=== PATIENT | male | born 1980 | race Caucasian/White ===

== ENCOUNTER 2017-03-23 02:07 | Emergency (ER) | payer OTHER ==
[~2017-03-23] VITALS: Ht 165.1 cm; Wt 145.0 kg
[2017-03-23 03:31] VITALS: BP 170/90
== END 2017-03-23 04:20 | disposition left against medical advice (07) ==
LOC: ER 02:13
DX: R53.83 Other fatigue (principal); Z53.21 Procedure and treatment not carried out due to patient leaving prior to being seen by health care provider

== ENCOUNTER 2017-03-23 05:31 | Emergency (ER) | payer OTHER ==
[~2017-03-23] VITALS: Ht 172.7 cm; Wt 112.0 kg
[2017-03-23 05:53] VITALS: BP 152/99
== END 2017-03-23 12:39 | disposition left against medical advice (07) ==
LOC: ER 12:38
DX: M79.642 Pain in left hand (principal); Z53.21 Procedure and treatment not carried out due to patient leaving prior to being seen by health care provider

== ENCOUNTER 2017-09-24 08:03 | Inpatient (IN) | payer OTHER ==
[~2017-09-24] VITALS: Ht 175.3 cm; Wt 145.6 kg
[2017-09-24] MEDS ORDERED: SODIUM CHLORIDE 0.9% 1,000 ML IV ONE (08:41)
[2017-09-24] MEDS ORDERED: LORAZEPAM 2MG/ML CPJ IV ONE (08:45)
[2017-09-24 09:11] LABS: BASOPHILS % 0.5 % (0.0-2.0); EOSINOPHILS % 1.2 % (0.0-5.0); HEMATOCRIT. 45.2 % (42.0-52.0); HEMOGLOBIN. 15.8 g/dL (14.0-18.0); LYMPHOCYTES % 17.7 % (20.0-50.0); MEAN CORPUSCULAR HEMOGLOBIN 30.5 pg (28.0-32.0); MEAN CORPUSCULAR VOLUME 86.9 fL (80.0-94.0); MEAN PLATELET VOLUME 8.6 fl (7.4-10.4); NEUTROPHILS % 73.6 % (40.0-76.0); PLATELET 204 x1000/uL (130-400); RED CELL DISTRIBUTION WIDTH 13.5 % (11.6-14.6)
[2017-09-24] MEDS ORDERED: ONDANSETRON HCL 4MG/2ML VIAL IV ONE (09:15)
[2017-09-24] MEDS ORDERED: ACTIVATED CHARCOAL 50 G/240 ML TUBE NG ONE (09:15)
[2017-09-24 09:26] LABS: CARBON DIOXIDE 24 mEq/L (21-32); CHLORIDE 105 mEq/L (98-107); ETHANOL BLOOD < 10 mg/dL; TROPONIN I < 0.02 ng/mL (0.00-0.04)
[2017-09-24 10:48] LABS: CLARITY URINE CLEAR (CLEAR); COLOR URINE YELLOW (YELLOW); GLUCOSE URINE NEGATIVE (NEGATIVE); KETONES URINE NEGATIVE (NEGATIVE); LEUKOCYTE ESTERASE URINE NEGATIVE (NEGATIVE); NITRITE URINE NEGATIVE (NEGATIVE); OCCULT BLOOD URINE NEGATIVE (NEGATIVE); PH URINE 5.5 (4.5-8.0); PROTEIN URINE NEGATIVE (NEGATIVE); SPECIFIC GRAVITY URINE 1.019 (1.005-1.030)
[2017-09-24 11:24] LABS: *AMPHETAMINES SCREEN URINE PRESUMTIVE POSITIVE (NEGATIVE); *BARBITURATES SCREEN URINE NEGATIVE (NEGATIVE); *BENZODIAZEPINES SCREEN URINE PRESUMTIVE POSITIVE (NEGATIVE); *COCAINE SCREEN URINE NEGATIVE (NEGATIVE); CANNABINOID URINE SCREEN NEGATIVE (NEGATIVE); METHADONE URINE SCREEN NEGATIVE (NEGATIVE); OPIATES URINE SCREEN NEGATIVE (NEGATIVE); PHENCYCLIDINE URINE SCREEN NEGATIVE (NEGATIVE)
[2017-09-24] MEDS ORDERED: CLONIDINE 0.1MG TABLET PO PRN (13:45)
[2017-09-24] MEDS ORDERED: DOCUSATE SODIUM 100MG CAPSULE PO PRN (13:45)
[2017-09-24] MEDS ORDERED: DIPHENHYDRAMINE 50MG/ML VIAL IV PRN (13:45)
[2017-09-24] MEDS ORDERED: IPRATROPIUM/ALBUTEROL 0.5-3(2.5)MG/3ML NEB INH PRN (13:45)
[2017-09-24] MEDS ORDERED: ENOXAPARIN 40MG/0.4ML SYR SUBCUT SCH (13:45)
[2017-09-24] MEDS ORDERED: MAGNESIUM/ALUMINUM HYDROXIDE/SIMETHICONE 30ML UDC PO PRN (13:45)
[2017-09-24] MEDS ORDERED: HYDROCODONE/ACETAMINOPHEN 5/325MG TABLET PO PRN (13:45)
[2017-09-24] MEDS ORDERED: ONDANSETRON HCL 4MG/2ML VIAL IV PRN (13:45)
[2017-09-24] MEDS ORDERED: GUAIFENESIN 200MG/10ML SUGAR FREE UDC PO PRN (13:45)
[2017-09-24] MEDS ORDERED: ACETAMINOPHEN 325MG TABLET PO PRN (13:45)
[2017-09-24] MEDS: LORAZEPAM 2MG/ML CPJ IV PRN ×2 (14:18→19:18)
[2017-09-24] MEDS ORDERED: LORAZEPAM 2MG/ML CPJ ONE (14:23)
[2017-09-24 14:41] LABS: CARBON DIOXIDE 23 mEq/L (21-32); CHLORIDE 105 mEq/L (98-107); TROPONIN I < 0.02 ng/mL (0.00-0.04)
[2017-09-24] MEDS ORDERED: ACETYLCYSTEINE 200MG/ML 20% VIAL 30ML PO ONE (16:00)
[2017-09-24] MEDS ORDERED: [UNRECOGNIZED DRUG - REMARK] XX SCH (16:00)
[2017-09-24] MEDS ORDERED: NA PHOS,M-B/NA PHOS,DI-BA ENEMA 118ML PR PRN (17:00)
[2017-09-24] MEDS ORDERED: HYDROMORPHONE HCL/PF 2MG/ML CPJ IV PRN (17:00)
[2017-09-24] MEDS ORDERED: DEXT 5% IV NR ×2 (17:00→18:00)
[2017-09-24] MEDS ORDERED: WATER IV NR ×2 (17:00→18:00)
[2017-09-24] MEDS ORDERED: ACETYLCYSTEINE IV NR ×2 (17:00→18:00)
[2017-09-24] MEDS: DEXT 5%/0.45% NACL KCL 10MEQ/L 1,000 ML IV SCH (20:16)
[2017-09-24] MEDS ORDERED: DEXTROSE 5% IV SCH (22:00)
[2017-09-24] MEDS ORDERED: WATER IV SCH (22:00)
[2017-09-24] MEDS ORDERED: ACETYLCYSTEINE IV SCH (22:00)
[2017-09-25 00:46] LABS: TROPONIN I < 0.02 ng/mL (0.00-0.04)
[2017-09-25] MEDS: LORAZEPAM 2MG/ML CPJ IV PRN (02:57)
[2017-09-25 04:24] LABS: BASOPHILS % 0.4 % (0.0-2.0); EOSINOPHILS % 0.3 % (0.0-5.0); HEMATOCRIT. 45.2 % (42.0-52.0); HEMOGLOBIN. 15.7 g/dL (14.0-18.0); LYMPHOCYTES % 9.2 % (20.0-50.0); MEAN CORPUSCULAR HEMOGLOBIN 30.3 pg (28.0-32.0); MEAN CORPUSCULAR VOLUME 87.1 fL (80.0-94.0); MEAN PLATELET VOLUME 8.4 fl (7.4-10.4); MONOCYTES % 4.9 % (2.0-8.0); NEUTROPHILS % 85.2 % (40.0-76.0); PLATELET 203 x1000/uL (130-400); RED BLOOD CELL COUNT 5.19 mill/uL (4.7-6.1); RED CELL DISTRIBUTION WIDTH 13.7 % (11.6-14.6)
[2017-09-25 04:34] LABS: CHLORIDE 105 mEq/L (98-107)
[2017-09-25 04:43] LABS: CARBON DIOXIDE 24 mEq/L (21-32); HDL CHOLESTEROL 46 mg/dL (40-59); LDL CHOLESTEROL 113 mg/dL (5-100)
[2017-09-25] MEDS: DEXT 5%/0.45% NACL KCL 10MEQ/L 1,000 ML IV SCH (05:45)
[2017-09-25 08:00] VITALS: BP 128/81
[2017-09-25] MEDS ORDERED: ENOXAPARIN 30MG/0.3ML SYR SUBCUT SCH (09:00)
[2017-09-25] MEDS ORDERED: LEVOFLOXACIN 500MG PREMIX 100 ML IV SCH (09:00)
[2017-09-25 12:28] VITALS: BP 131/70
== END 2017-09-25 13:30 | disposition left against medical advice (07) | DRG 918 ==
LOC: ER 08:11 → 6WST 13:32 → CANRESERV 20:46 → ENRESERV 20:46
PROVIDERS: ADMIT Internal Medicine; ATTEND Internal Medicine
DX: T43.291A Poisoning by other antidepressants, accidental (unintentional), initial encounter (principal); E86.0 Dehydration; E87.6 Hypokalemia; Y92.89 Other specified places as the place of occurrence of the external cause; F41.9 Anxiety disorder, unspecified; T39.1X1A Poisoning by 4-Aminophenol derivatives, accidental (unintentional), initial encounter; Z53.21 Procedure and treatment not carried out due to patient leaving prior to being seen by health care provider
CPT/HCPCS: 36415; 80048; 80053; 80061; 80076; 80305; 80307; 80329; 81003; 82962; 84484; 85025; 93005; 96365; 96366; 96375; 96376; 99285; G0482; J0132; J1200; J1956; J2060; J2405; J7030; J7060; J7070